=== PATIENT | male | born 1950 | race African-American/Black ===

== ENCOUNTER 2018-06-17 20:16 | Emergency (ER) | payer OTHER ==
[2018-06-17 20:41] LABS: BASO # 0.1 x10^3/uL (0.0-0.2); BASO % 0 % (0-3); EOS % 0 % (0-3); HEMATOCRIT 25.9 % (39.0-53.0); HEMOGLOBIN 8.3 g/dL (13.0-17.5); LYMPH # 0.4 x10^3/uL (1.0-4.8); LYMPH % 2 % (24-48); MEAN CORPUSCULAR HEMOGLOBIN 29 pg (25-35); MEAN CORPUSCULAR HGB CONC 32 g/dL (31-37); MEAN CORPUSCULAR VOLUME 91 fL (79-100); MONO # 1.9 x10^3/uL (0.0-1.1); MONO % 12 % (0-9); NEUT # 13.9 x10^3uL (1.8-7.7); NEUT % 86 % (31-73); PLATELET COUNT 412 x10^3/uL (140-400); RED BLOOD COUNT 2.86 x10^6/uL (4.30-5.70); RED CELL DISTRIBUTION WIDTH 18.8 % (11.5-14.5); WHITE BLOOD COUNT 16.3 x10^3/uL (4.0-11.0)
[2018-06-17 20:42] LABS: ADD MAN DIFF? YES
[2018-06-17] MEDS: IPRATRPIUM/ALBUTEROL 0.5/2.5MG 3 ML NEBU. NEB (20:52)
[2018-06-17] MEDS: IV NORMAL SALINE 500ML BAG 500 ML IV (21:00)
[2018-06-17 21:04] LABS: LACTIC ACID 2.2 mmol/L (0.4-2.0)
[2018-06-17] MEDS: ALBUTEROL SULFATE 2.5 MG/3 ML NEBU. CONT NEB (21:06)
[2018-06-17 21:44] LABS: ANION GAP 4 (6-14); BLOOD UREA NITROGEN 13 mg/dL (8-26); CALCIUM 9.2 mg/dL (8.5-10.1); CARBON DIOXIDE 35 mmol/L (21-32); CHLORIDE 91 mmol/L (98-107); CREATININE 0.5 mg/dL (0.7-1.3); GFR 201.3; GLUCOSE 122 mg/dL (70-99); POTASSIUM 4.8 mmol/L (3.5-5.1); SODIUM 130 mmol/L (136-145)
[2018-06-17 21:47] LABS: ALBUMIN 1.8 g/dL (3.4-5.0); ALK PHOS 88 U/L (46-116); ALT (SGPT) 79 U/L (16-63); AST (SGOT) 66 U/L (15-37); DIRECT BILIRUBIN 0.2 mg/dL (0.0-0.2); TOTAL BILIRUBIN 0.3 mg/dL (0.2-1.0); TOTAL PROTEIN 8.2 g/dL (6.4-8.2)
[2018-06-17 21:50] LABS: TROPONINI < 0.017 ng/mL (0.000-0.055)
[2018-06-17 21:53] LABS: NT-PRO BNP 1045 pg/mL (0-124)
[2018-06-17 22:01] LABS: % BANDS 60 % (0-9); % LYMPHS 1 % (24-48); % MONOS 13 % (0-10); % SEGS 26 % (35-66); ANISOCYTOSIS SLIGHT; PLT ESTIMATE ADEQUATE (ADEQUATE); TOXIC GRANULATION SLIGHT; TOXIC VACUOLATION SLIGHT
[2018-06-17 22:05] LABS: PROCALCITONIN 0.26 ng/mL (0.00-0.10)
[2018-06-17] MEDS: MORPHINE SULFATE 10 MG/ML VIAL. IV ×2 (22:45→23:40)
[2018-06-17] MEDS: fentaNYL 75MCG/HR PATCH 1 PATCH PATCH.TD72 TD (23:24)
[2018-06-17] MEDS: SCOPOLAMINE 1.5MG PATCH. TD (23:25)
== END 2018-06-17 23:41 | disposition home or self-care (01) ==
LOC: ER 23:41
DX: R06.03 Acute respiratory distress (principal); F10.129 Alcohol abuse with intoxication, unspecified
CPT/HCPCS: 36415; 71045; 80048; 80076; 83605; 83880; 84145; 84484; 85007; 85025; 93005; 94640; 94644; 94660; 96374; 96376; 99285-25; J2270; J7040; J7613; J7620